=== PATIENT | male | born 1990 | race Caucasian/White ===

== ENCOUNTER 2020-07-10 22:49 | Emergency (ER) | payer OTHER ==
[~2020-07-10] VITALS: Ht 167.6 cm; Wt 61.2 kg
[2020-07-10 22:50] VITALS: BP_SYST 141
[2020-07-10 23:25] VITALS: BP_SYST 129
== END 2020-07-10 23:25 ==
LOC: SED 22:49
DX: Z02.89 Encounter for other administrative examinations (principal); Z72.89 Other problems related to lifestyle; V49.49XA Driver injured in collision with other motor vehicles in traffic accident, initial encounter; Y93.89 Activity, other specified; Y92.413 State road as the place of occurrence of the external cause; Y99.8 Other external cause status
CPT/HCPCS: 99283